=== PATIENT | female | born 1990 | race Caucasian/White ===

== ENCOUNTER 2022-03-09 15:00 | Emergency (ER) | payer OTHER, SELFPAY ==
--- NOTE | ~2022-03-09 | US_ITS ---
EXAMINATION: US OB limited DATE: 03/09/2022 17:42 INDICATION: Possible demise TECHNIQUE: Real-time ultrasound of the pelvis was performed. The interpreting radiologist was not pre sent for the study. COMPARISON: None. FINDINGS: There is a single fetus in breech presentation. The placenta is posterior. No cardiac activity is identified. The cranium is elongated and misshapen. The amniotic fluid index is escalera bjectively normal. The following biometric data were obtained: Biparietal diameter (BPD): 1.9 cm; head circumference (HC): 9.7 cm; abdominal circumference (AC): 8.9 cm; femur length (FL): 1.8 cm. These measurements are concordant. Estimated weight is 115 g +/- 17 g, which correlates with the <3rd percentile when 07/28/22 is used as estimated date of delivery. As single measurements, these parameters are each equal to the following estimated gestational ages w ith ranges of +/- 2 standard deviations: BPD: 13 weeks 0 days +/- 1 weeks 1 days. HC: 14 weeks 3 days +/- 1 weeks 1 days. AC: 15 weeks 1 days +/- 1 weeks 5 days. FL: 15 weeks 2 days +/- 1 weeks 3 days. estimated gestational age based solely on measurements from this exam is 14 weeks 3 days +/- 1 weeks 0 days. IMPRESSION: 1. demise. Reviewed, dictated and finalized at location F. IMPRESSION: 1. demise.
--- NOTE | ~2022-03-09 | XR_ITS ---
EXAMINATION: XR chest 1V portable INDICATION: Left-sided chest pain TECHNIQUE: Portable AP chest at 1829 hours COMPARISON: None available FINDINGS: The lungs are free of acute opacities. There is no pleural effusion or pneumothorax. The ca rdiomediastinal silhouette is normal. IMPRESSION: 1. No acute cardiopulmonary abnormality. Reviewed, dictated and finalized at location F.
--- NOTE | 2022-03-09 15:09 | ECG_ITS ---
Measurements Intervals [place] Rate: 76 P: 111 FL: 194 QRS: 153 QRSD: 92 T: 162 QT: 371 QTc: 419 Interpretive Statements SINUS RHYTHM ARM LEADS REVERSED INCOMPLETE RIGHT BUNDLE BRANCH BLOCK LOW VOLTAGE- PRECORDIAL LEADS BORDERLINE ECG Electronically Signed On 03-09-2022 15:17:08 CDT by Leon Mckeon D.O.
[2022-03-09 15:24] VITALS: BP 109/60; PULSE 79; RESP 18; TEMP 36.3; O2SAT 100
[2022-03-09 15:25] LABS: Basophils Percent Auto 0.1 % (0.2-1.2); Eosinophils Absolute Auto 0.1 K/mm3 (0-0.3); Eosinophils Percent Auto 1.6 % (0-4.4); Hematocrit 38.2 % (37.0-47.0); Hemoglobin 12.6 g/dL (12.0-15.0); Immature Granulocyte Absolute 0.04 K/mm3 (0.00-0.031); Immature Granulocyte Percent A 0.5 % (0-0.5); Lymphocytes Absolute Auto 1.86 K/mm3 (0.9-3.2); Lymphocytes Percent Auto 24.1 % (18.3-44.2); Mean Corpuscular Hemoglobin 29.2 pg (26-34); Mean Corpuscular Volume 88.6 fl (80-100); Mean Platelet Volume 8.6 fl (7.4-10.4); Monocytes Absolute Auto 0.3 K/mm3 (0.1-0.6); Neutrophils Absolute Auto 5.4 K/mm3 (1.3-6.7); Neutrophils Percent Auto 69.7 % (45.5-73.1); Platelet Count Result 215 k/mm3 (150-375); Red Blood Count 4.31 M/mm3 (4.2-5.4); Red Cell Distribution Width 13.2 % (11.5-14.5); White Blood Count 7.7 K/mm3 (4.5-10.0)
[2022-03-09 15:34] LABS: Alanine Aminotransferase 18 U/L (6-35); Albumin Level 3.8 g/dL (3.5-5.1); Alkaline Phosphatase 44 U/L (38-126); Anion Gap 5 mmol/L (8-16); Aspartate Amino Transferase 23 U/L (14-36); Bilirubin,Total 0.2 mg/dL (0.2-1.3); Blood Urea Nitrogen 11 mg/dL (7-17); Calcium 8.6 mg/dL (8.4-10.2); Carbon Dioxide 25 mmol/L (22-30); Chloride 106 mmol/L (98-107); Estimated CRCL calculation 120 ml/min; Estimated Glomerular Filt Rate > 60; Glucose 118 mg/dL (65-110); Lipase 53 U/L (23-300); Potassium 3.3 mmol/L (3.4-5.0); Sodium 136 mmol/L (137-145)
[2022-03-09 15:35] LABS: Partial Thromboplastin Time 31.4 SECONDS (22.3-36.8); Prothrombin Time 12.6 Seconds (11.1-14.7)
[2022-03-09 15:46] LABS: Troponin I < 0.012 ng/mL (0.000-0.034)
[2022-03-09 16:24] VITALS: PULSE 68
[2022-03-09 16:26] VITALS: BP 106/63; PULSE 68; RESP 16; O2SAT 99
[2022-03-09 17:15] VITALS: BP 106/65; PULSE 86; RESP 18; O2SAT 99
[2022-03-09 18:00] VITALS: BP 110/68; PULSE 78; RESP 14; O2SAT 100
--- NOTE | 2022-03-09 18:20 | ED.CHESTPAIN ---
HPI - Chest Pain General Chief Complaint: Chest Pain Stated Complaint: Chest Pain Time Seen by Provider: 03/09/22 16:27 History of Present Illness HPI narrative: 31-year-old female at 20 weeks presents here with complaint of midsternal chest pain, she states that its been ongoing for the past day, started at 8 this morning when she was fixing breakfast, and seems to be Constant, not better or worse with movement, no shortness of breath, nausea or vomiting, no radiation of the pain. Never had symptoms like this before. Swelling or pain in legs. Related Data Home Medications Medication Instructions Recorded Confirmed prenat.vits,emiliano,[id number] 1 tablet PO DAILY 03/09/22 Allergies Allergy/AdvReac Type Severity Reaction Status Date / Time No Known Allergies Allergy Verified 03/09/22 16:19 Review of Systems Review of Systems: CONST: No fever. HEENT: No sore throat C/V: chest pain RESP: No cough GI: No nausea or vomiting : No vaginal bleeding M/S: No joint pain. SKIN: No rash. NEURO: [No headache or focal numbness or weakness] PSYCH: [No depression] [facility] Family History Family History Grandparent Diabetes mellitus Hypertension Family history of elevated blood lipids Family history of malignant neoplasm Carcinoma of colon Social History Social History Smoking status: Never smoker Alcohol intake: current Exam Narrative: EXAMINATION OF ORGAN SYSTEMS/BODY AREAS: Constitutional: Vital signs per nursing GENERAL:[No acute distress, non-toxic appearing.] HEAD: Normal with no signs of head trauma. EYES: EOMI, conjunctiva normal ENT: Hearing grossly intact LUNGS: Nonlabored breathing. HEART: [Regular rate and rhythm] ABD: [Soft], gravid EXT: Normal range of motion SKIN: [No rashes or lesions.] NEURO: [Alert and oriented x 3. No gross focal sensory or strength deficits.] PSYCH: Normal affect Course Vital Signs Vital signs: Vital Signs Temperature 97.4 F L 03/09/22 15:24 Pulse Rate 79 03/09/22 15:24 Respiratory Rate 18 03/09/22 15:24 Blood Pressure 109/60 03/09/22 15:24 Pulse Oximetry 100 03/09/22 15:24 Oxygen Delivery Room Air 03/09/22 15:24 Temperature 97.4 F L 03/09/22 15:24 Pulse Rate 78 03/09/22 18:00 Respiratory Rate 14 03/09/22 18:00 Blood Pressure 110/68 03/09/22 18:00 Pulse Oximetry 100 03/09/22 18:00 Oxygen Delivery Room Air 03/09/22 15:24 MDM - Chest Pain MDM Narrative Medical decision making narrative: 31-year-old female presenting with chest pain, vital signs stable, doubt ACS/[place] without risk factors, doubt pneumothorax or pneumonia without cough or difficulty breathing, doubt PE without any difficulty breathing and with normal vital signs and no DVT symptoms. Patient did at this time request an ultrasound of her baby, as I did the bedside ultrasound I did note no heart rate or movement, I was concerned for intrauterine demise at this time. Official ultrasound ordered which confirmed IUFD, I discussed this with the on-call OB given her Rh- status, he assured me that she would be stable for discharge but should call her OB in the morning for close follow-up. EKG and chest x-ray here are unremarkable for any acute abnormality, she is reassured and urged to follow-up with her doctor for further testing as needed if she continues to have pain Lab Data Result diagrams: 03/09/22 15:17 03/09/22 15:17 Labs: Lab Results 03/09/22 03/09/22 03/09/22 Range/Units 15:17 15:17 15:17 WBC 7.7 (4.5-10.0) K/mm3 RBC 4.31 (4.2-5.4) M/mm3 Hgb 12.6 (12.0-15.0) g/dL Hct 38.2 (37.0-47.0) % MCV 88.6 (80-100) fl MCH 29.2 (26-34) pg MCHC 33.0 (32-36) g/dl RDW 13.2 (11.5-14.5) % Plt Count 215 (150-375) k/mm3 MPV 8.6 (7.4-10.4) fl Immature Gr
[2022-03-09 18:56] LABS: Troponin I < 0.012 ng/mL (0.000-0.034)
[2022-03-09 19:39] VITALS: BP 98/58; PULSE 80; RESP 20; O2SAT 99
== END 2022-03-09 19:49 | disposition home or self-care (01) ==
PROVIDERS: Emergency Provider Emergency Medicine; PCP Family Medicine
DX: R07.9 Chest pain, unspecified (principal)
CPT/HCPCS: 36415; 71045; 76815; 80053; 83690; 84484; 85025; 85610; 85730; 93005; 99284